=== PATIENT | male | born 2000 | race Caucasian/White ===

== ENCOUNTER 2024-01-04 08:12 | Day surgery (SDC) | payer BC ==
[2024-01-04] MEDS ORDERED: Ringers Lactate 1,000 ML IV ONE (08:26)
[2024-01-04] MEDS ORDERED: LIDOCAINE HCL/EPINEPHRINE 20 ML MDV ONE (08:46)
[2024-01-04] MEDS ORDERED: LIDOCAINE 1% MPF 5 ML VIAL ONE (09:31)
[2024-01-04] MEDS ORDERED: FENTANYL CITR 100 MCG/2 ML ONE ×2 (09:32→11:37)
[2024-01-04] MEDS ORDERED: MIDAZOLAM HCL 2 MG/2 ML INJ ONE (09:32)
[2024-01-04] MEDS ORDERED: propofoL 200 MG/20 ML VIAL IV ONE (09:32)
[2024-01-04] MEDS ORDERED: ONDANSETRON 4 MG/2 ML VIAL ONE (09:33)
[2024-01-04] MEDS ORDERED: dexAMETHasone 4 MG/ML VIAL ONE (09:33)
[2024-01-04] MEDS ORDERED: ROCURONIUM 50 MG/5 ML VIAL IV ONE (09:33)
[2024-01-04] MEDS ORDERED: KETOROLAC 30 MG/ML INJ ONE (09:33)
[2024-01-04] MEDS ORDERED: EPINEPHRINE 1 MG/ML VIAL ONE ×2 (10:30→10:48)
[2024-01-04] MEDS: EPINEPHRINE 1 MG/ML VIAL SQ ONE ×2 (10:32)
[2024-01-04] MEDS ORDERED: HYDROCODONE/APAP 7.5/325 MG TAB ONE (12:06)
[2024-01-04] MEDS: HYDROCODONE/APAP 7.5/325 MG TAB PO ONE (12:10)
[2024-01-04 12:21] VITALS: BP 131/68; TEMP 97; O2SAT 100
--- NOTE | 2024-01-04 12:23 | P.OP ---
Date of Service: 01/04/24 Preoperative diagnosis: Chronic tonsillitis, Tonsillolithiasis Postoperative diagnosis: Same Procedure: Tonsillectomy Surgeon: Cha Ureña MD Scheduling Administrator: None Anesthesia: General via endotracheal tube IV fluids: crystalloid, see anesthesia record Estimated blood loss: Minimal, less than 5 mL Specimen: Bilateral tonsils Findings: Chronic tonsillitis and tonsil stones. Suture tie placed at the base of the right tonsil at the time of removal for ligation of tissue. Moderate to significant bleeding on the superior pole treated with epinephrine soaked sponge and packing with pressure held for 10 minutes. On subsequent evaluation there was bleeding near the anterior pillar within the fossa which was clamped and t ied as well. The left side did not have any significant degree of bleeding but did appear chronically inflamed. Near the base of the tonsil, small amount of tonsil tissue was left in situ to avoid entry into lingual vessels and to avoid entry into the base of tongue Implants: None Indication: patient with persistent symptoms and findings in spite of good medical management. Details of operation: The patient was brought to the operating room and placed under general anesthesia via oral endotracheal tube. The head of bed was turned 90 degrees. A shoulder roll was placed and the neck was extended. A head drape was applied. The McIvor mouthgag was placed and suspended from the Harper stand. The oxygen concentration was confirmed with the anesthesiologist and was less than 40%. W eight-based dexamethasone was administered by the anesthesiologist. The soft palate was palpated and there was no submucous cleft. A red rubber catheter was placed in the nose and the tip withdrawn through the mouth and secured to the head drape for retraction of the soft palate. The tonsils were noted to be moderate sized with chronic inflammation and tonsil stones. The left tonsil was grasped with a straight Allis clamp. The Bovie electrocautery was used to incise the mucosa over the anterior pillar and identified the tonsillar capsule. The tonsil was dissected using cautery and blunt dissection until free from soft tissue attachments. A tonsil ball was placed to aid in hemostasis. The right tonsil was removed in a similar manner. During removal of the right tonsil, near the base of the tonsil there was bleeding and decision was made to use a 4-0 Endoloop suture to ligate the tonsil from the base of tongue. Following this, there was moderate to significant bleeding near the anterior pillar and an epinephrine soaked tonsil sponge was applied with direct pressure for 10 minutes. After removal the bleeding continued. The Inga retractor was used to elevate the anterior pillar revealing bleeding more anteriorly which was cauterized. With this additional bleeding was noted in the anterior pillar the tissue was grasped with a tonsil clamp and ligated with an additional 4-0 Endoloop suture. Once the suture was applied there was oozing in the mid to lower anterior tonsillar fossa and an additional epinephrine soaked gauze was placed over this area and held in situ for an additional 5 minutes. After removal, the area appeared hemostatic The tonsillar fossa's were injected with 0.5% Marcaine with epinephrine; a total of 1-2 milliliters was used. The oropharynx was irrigated with cold saline. After suctioning, a Harford sump orogastric tube was passed for decompression of the stomach. The red rubber catheter was removed and used to suction the oropharynx, nasopharynx, and nasal cavities. The McIvor mouthgag was removed. There was no evidence of injury to the teeth, lips, or tongue. The mandible was mobile. The patient was then awakened from anesthesia and extubated in the operating room, taken to the recovery room in stable condition. Disposition: The patient will be discharged home later today in the care of their family with written postoperative instructions and appropriate pain medications. They will follow-up in Dr. Ureña's office in approximately 1 month. They are instructed to contact Dr. Ureña's office for any bleeding or other concerns.
== END 2024-01-04 12:44 | disposition home or self-care (01) ==
LOC: OR 08:12
PROVIDERS: ATTEND Otolaryngology
PROC: 0CTPXZZ Resection of Tonsils, External Approach (ICD-10-PCS; principal; 2024-01-04 10:15)
DX: J35.01 Chronic tonsillitis (principal); J35.8 Other chronic diseases of tonsils and adenoids
CPT/HCPCS: 88304; 42826; J2704; J1100; J2001; J2250; J3010 ×2; J0171 ×3; J2405; J7120

== ENCOUNTER 2024-01-10 05:08 | Emergency (ER) | payer BC ==
[2024-01-10 06:09] LABS: Absolute Eosinophils 0.2 K/uL (0-0.5); Absolute Monocytes 0.5 K/uL (0.1-1.3); Absolute Neutrophil 2.6 K/uL (1.8-8.0); Basophils % 0.3 % (0-1.3); Eosinophils % 3.1 % (0-4.4); Hematocrit 45.2 % (39.6-49.0); Hemoglobin 15.2 g/dL (13.6-17.9); Lymphocytes % 37.9 % (15.3-44.8); MCH 30.4 pg (27.0-35.0); MCHC 33.6 g/dL (32.0-36.0); MCV 90.5 fL (80-100); MPV 8.3 fL (7.6-11.3); Monocytes % 10.2 % (3.3-12.3); Neutrophils % 48.5 % (41.7-73.7); Platelets 148 thou/uL (152-406); RBC Red Blood Cell Count 4.99 M/uL (4.33-5.43); Red Cell Distribution Width 12.9 % (12.1-15.2)
[2024-01-10] MEDS ORDERED: TRANEXAMIC ACID 1,000 MG/10 ML VIAL IV ONE (06:09)
[2024-01-10] MEDS ORDERED: NA CHLORIDE 0.9% 100 ML ONE (06:09)
[2024-01-10] MEDS ORDERED: NA CHLORIDE 0.9% 1,000 ML ONE (06:09)
[2024-01-10 06:14] LABS: PT Prothrombin Time 12.6 SECONDS (9.4-12.5); Protime INR 1.13
--- NOTE | 2024-01-10 06:51 | P.CNS ---
Date of Consult: 01/10/24 Chief complaint: Hemoptysis HPI: 23-year-old white male postop day 6 tonsillectomy called on-call ENT with concerns of coughing up blood around 4:30 AM. His significant other reported he coughed up a small amount of blood and then about 15 minutes later had another episode of small-volume hemoptysis. Due to his condition he was recommended to present to the emergency room for examination. The patient notes that his pain over the last week was worse over the weekend but generally has been well- controlled with the hydrocodone/acetaminophen and he has 1 or 2 tablets remaining at home. Reports that he has been taking in adequate oral fluids with urination of light yellow urine throughout the day. Photodocumentation reviewed in the emergency room of the blood from home demonstrates clear saliva with a generous streak of blood but no large clot or gross hemoptysis. Past medical history as documented in his H&P from January 03 with addition of tonsillectomy performed by Dr. Ureña on that date Home medications: Hydrocodone/acetaminophen for postoperative pain. Allergies: No known drug allergies Review of systems: Patient denies fever, headache, easy bruising, shortness of breath, chest pain, nausea or vomiting. All other review of systems is negative Physical exam: patient is in no acute distress. He is resting quietly and is awake alert and oriented. He is currently receiving IV fluids and TXA through his IV. His oral cavity appears moist. His oropharynx demonstrates bilateral eschar of the tonsillar fossa with a 2 to 3 mm area of flat clot at the base of the right tonsillar fossa with no active bleeding. Assessment: secondary post tonsillectomy hemorrhage Plan: Complete current 1 L IV fluid saline bolus with tranexamic acid. We discussed options given the lack of active bleeding on exam including brief observation in the operating room with discharge following completion of medical therapy. Alternatively we discussed the option of observation during the day today for at least the next several hours in order to monitor for any additional bleeding. The patient and his significant other will discuss the options. If the patient elects for observation, the ER is requested to contact Dr. Ureña for placement of orders. We discussed further outpatient pain management with option for a refill of his hydrocodone versus transition to OTC acetaminophen only. He does not request a refill of medications at this time. Due to his acute bleeding I would avoid aspirin and ibuprofen for the next several days.
[2024-01-10 06:53] LABS: ALT/SGPT 19 U/L (16-61); Albumin 4.1 g/dL (3.4-5.0); Albumin/Globulin Ratio 1.2 (1.1-1.8); Alkaline Phosphatase 55 U/L (45-117); Anion Gap 8.5 mEq/L (5.0-15.0); BUN Blood Urea Nitrogen 9 mg/dL (7-18); Bicarbonate 29 mEq/L (21-32); Bilirubin Total 0.7 mg/dL (0.2-1.0); Globulin 3.5 g/dL (2.3-3.5); Glomerular Filtration Rate 128 ml/min (=/>90); Glucose Level 100 mg/dL (74-106); Protein, Total 7.6 g/dL (6.4-8.2); Sodium Level 136 mEq/L (136-145)
[2024-01-10 06:55] LABS: Potassium 3.5 mEq/L (3.5-5.1)
[2024-01-10 06:56] LABS: AST/SGOT 13 U/L (15-37); Bilirubin Direct < 0.2 mg/dL (0-0.2); Bilirubin Indirect, Calculated 0.5 mg/dL (0.2-0.8)
--- NOTE | 2024-01-10 08:12 | EDPHYS ---
Physician Documentation [facility] Name: Manan Tripp Age: 23 yrs Sex: Male : 2000 Arrival Date: 01/10/2024 Time: 05:08 Bed 12 Private MD: ED Physician Joni Hernandez HPI: 01/09 05:26 This 23 yrs old Male presents to ER via Unassigned with complaints of Post sp4 Surgical Bleeding, Tonsillectomy on 01/04/24. 06:43 23-year-old male history of tonsillectomy 6 days ago 01/04/2024 presents with mild sp4 postoperative bleeding from site of the right tonsil. Patient is feeling okay at this time. Dr. Ureña with ENT called ahead of time and recommended IV fluids and tranexamic acid.. Historical: - Allergies: 05:31 No Known Allergies; kl - Home Meds: 05:31 hydrocodone-acetaminophen 7.5-325 mg Oral tablet [Active]; kl - PMHx: 05:31 None; kl - PSHx: 05:31 Tonsillectomy; kl - Immunization history:: Adult Immunizations not up to date. - Infectious Disease History:: Denies. - Social history:: Smoking status: Patient denies any tobacco usage or history of. - Family history:: not pertinent. ROS: 06:43 Constitutional: Negative for fever, chills, and weight loss, positive postoperative sp4 bleeding from the throat 06:43 All other systems are negative, Exam: 06:43 Constitutional: This is a well developed, well nourished patient who is awake, alert, sp4 and in no acute distress. Head/Face: Normocephalic, atraumatic. Eyes: Pupils equal round and reactive to light, extra-ocular motions intact. Lids and lashes normal. Conjunctiva and sclera are not injected. Cornea within normal limits. Periorbital areas with no swelling, redness, or edema. ENT: Nares patent. No nasal discharge, no septal abnormalities noted. Tympanic membranes are normal and external auditory canals are clear. Oropharynx with no swelling, or masses, or evidence of obstruction, uvula midline. Mucous membranes moist. Postoperative changes in the throat with granulation tissue around tonsillectomy site no sign of active bleeding. Neck: Trachea midline, no thyromegaly or masses palpated, and no cervical lymphadenopathy. Supple, full range of motion without nuchal rigidity, or vertebral point tenderness. Chest/axilla: Normal chest wall appearance and motion. Nontender with no deformity. No lesions are appreciated. Cardiovascular: Regular rate and rhythm with a normal S1 and S2. No gallops, murmurs, or rubs. Normal PMI, no JVD. No pulse deficits. Respiratory: Lungs have equal breath sounds bilaterally, clear to auscultation and percussion. No rales, rhonchi or wheezes noted. No increased work of breathing, no retractions or nasal flaring. Abdomen/GI: Soft, with normal bowel sounds. No distension or tympany. No guarding or rebound. No evidence of tenderness throughout. Back: No spinal tenderness. No costovertebral tenderness. Skin: Warm, dry with normal turgor. Normal color with no rashes, no lesions, and no evidence of cellulitis. MS/ Extremity: Pulses equal, no cyanosis. Neurovascular intact. Full, normal range of motion. Neuro: Awake and alert, GCS 15, oriented to person, place, time, and situation. Cranial nerves II-XII grossly intact. Motor strength 5/5 in all extremities. Sensory grossly intact. Psych: Awake, alert, with orientation to person, place and time. Behavior, mood, and affect are within normal limits Vital Signs: 05:29 BP 131 / 84; Pulse 72; Resp 18; Temp 97.8(O); Pulse Ox 99% ; Weight 73.48 kg (R); kl Height 5 ft. 8 in. ; Pain 4/10; 08:19 BP 128 / 64; Pulse 64; Resp 16; Pulse Ox 98% on R/A; Pain 0/10; iw 05:29 Body Mass Index 24.63 (73.48 kg, 172.72 cm) kl 05:29 Pain Scale: Adult kl 08:19 Pain Scale: Adult iw [employer] Coma Score: 06:43 Eye Response: spontaneous(4). Motor Response: obeys commands(6). Verbal Response: sp4 oriented(5). Total: 15. MDM: 05:44 Patient medically screened. sp4 20:30 Differential diagnosis: nasal fracture, trauma, sinusitis, epistaxis r/t trauma, sp4 spontaneous epistaxis. Data reviewed: vital signs, nurses notes. 20:31 ED course: Patient was evaluated by Dr. Ureña in the ER. No further bleeding in the sp4 ER. Tranexamic acid was given IV. Patient stable for discharge home.. 01/09 05:38 Order name: Basic Metabolic Panel; Complete Time: 20:31 sp4 01/09 05:38 Order name: CBC with Diff; Complete Time: 06:42 sp4 01/09 05:38 Order name: LFT's; Complete Time: 20:31 sp4 01/09 05:38 Order name: PT-INR; Complete Time: 06:42 sp4 01/09 05:38 Order name: IV Saline Lock; Complete Time: 06:30 sp4 01/09 05:38 Order name: Labs collected and sent; Complete Time: 06:30 sp4 Administered Medications: 06:30 Drug: tranexamic acid 1000 mg IV at calculated rate once; administer at a rate not to jb4 exceed 100 mg per min {Note: administered in 100ml NS.} Route: IV; Rate: calculated rate; Site: right antecubital; 07:00 Follow up: IV Status: Completed infusion iw 06:30 Drug: NS 0.9% IV 1000 ml IV at 1 bolus Per protocol; 1000 mL bolus Route: IV; Rate: 1 jb4 bolus; Site: right antecubital; 07:30 Follow up: IV Status: Completed infusion iw Disposition Summary: 01/10/24 08:11 Discharge Ordered Notes: Location: Home sp4 Problem: new sp4 Symptoms: have improved sp4 Condition: Stable sp4 Diagnosis - Post operative bleeding, After Tonsillectomy Bleeding sp4 Followup: sp4 - With: Cha Ureña MD - When: 7 - 10 days - Reason: Recheck today's complaints Discharge Instructions: - Discharge Summary Sheet sp4 - Medical Screening Exam sp4 Forms: - Patient Portal Instructions sp4 Signatures: Dispatcher [employer] Toña Dodson RN RN kl Bryson, James, RN RN jb4 Potepalov, Sergey, MD MD sp4 Williams, Irene RN iw Corrections: (The following items were deleted from the chart) 05:38 05:38 BASIC METABOLIC PANEL+C.LAB.BRZ ordered. EDMS EDMS 05:38 05:38 CBC+H.LAB.BRZ ordered. EDMS EDMS 05:38 05:38 HEPATIC FUNCTION+C.LAB.BRZ ordered. EDMS EDMS 05:38 05:38 PROTIME (+INR)+COAG.LAB.BRZ ordered. EDMS EDMS
--- NOTE | 2024-01-10 08:12 | ER ---
Nurse's Notes [facility] Name: Manan Tripp Age: 23 yrs Sex: Male : 2000 Arrival Date: 01/10/2024 Time: 05:08 Bed 12 Private MD: Diagnosis: Post operative bleeding, After Tonsillectomy Bleeding Presentation: 01/09 05:29 Chief complaint: Patient states: tonsillectomy done on Sunday reports bleeding from kl area x 2 hours. Coronavirus screen: Vaccine status: Patient reports being unvaccinated. Ebola Screen: Patient negative for fever greater than or equal to 101.5 degrees Fahrenheit, and additional compatible Ebola Virus Disease symptoms. Initial Sepsis Screen: Does the patient meet any 2 criteria? No. Patient's initial sepsis screen is negative. Does the patient have a suspected source of infection? No. Patient's initial sepsis screen is negative. Risk Assessment: Do you want to hurt yourself or someone else? Patient reports no desire to harm self or others. Onset of symptoms was January 10, 2024 at 03:30. 05:29 Method Of Arrival: Ambulatory 05:29 Acuity: KAYY 4 Triage Assessment: 05:32 General: Appears in no apparent distress. Behavior is calm, cooperative. Pain: Complains of pain in throat Pain currently is 4 out of 10 on a pain scale. EENT: Throat small amount of blood noted. Historical: - Allergies: 05:31 No Known Allergies; kl - Home Meds: 05:31 hydrocodone-acetaminophen 7.5-325 mg Oral tablet [Active]; - PMHx: 05:31 None; - PSHx: 05:31 Tonsillectomy; - Immunization history:: Adult Immunizations not up to date. - Infectious Disease History:: Denies. - Social history:: Smoking status: Patient denies any tobacco usage or history of. - Family history:: not pertinent. Screenin:20 [facility] ED Fall Risk Assessment (Adult) History of falling in the last 3 months, iw including since admission No falls in past 3 months (0 pts) Confusion or Disorientation No (0 pts) Intoxicated or Sedated No (0 pts) Impaired Gait No (0 pts) Mobility Assist Device Used No (0 pt) Altered Elimination No (0 pt) Score/Fall Risk Level 0 - 2 = Low Risk. Abuse screen: Denies threats or abuse. Nutritional screening: No deficits noted. Tuberculosis screening: No symptoms or risk factors identified. Assessment: 07:54 Reassessment: Patient appears in no apparent distress at this time. Patient and/or iw family updated on plan of care and expected duration. Pain level reassessed. Patient is alert, oriented x 3, equal unlabored respirations, skin warm/dry/pink. no bleeding noted Patient states symptoms have improved. Vital Signs: 05:29 BP 131 / 84; Pulse 72; Resp 18; Temp 97.8(O); Pulse Ox 99% ; Weight 73.48 kg (R); kl Height 5 ft. 8 in. ; Pain 4/10; 08:19 BP 128 / 64; Pulse 64; Resp 16; Pulse Ox 98% on R/A; Pain 0/10; iw 05:29 Body Mass Index 24.63 (73.48 kg, 172.72 cm) kl 05:29 Pain Scale: Adult kl 08:19 Pain Scale: Adult iw [place] Coma Score: 06:43 Eye Response: spontaneous(4). Motor Response: obeys commands(6). Verbal Response: sp4 oriented(5). Total: 15. ED Course: 05:10 Patient arrived in ED. [id number] 05:26 Joni Hernandez MD is Attending Physician. sp4 05:31 Triage completed. kl 07:00 Arm band placed on. iw 07:09 Minoo Villanueva, RN is Primary Nurse. iw 07:54 Patient has correct armband on for positive identification. iw 07:54 No provider procedures requiring assistance completed. iw 08:08 Cha Ureña MD is Referral Physician. sp4 08:20 Provided Education on: d/c instructions . iw 08:20 IV discontinued, intact, bleeding controlled, No redness/swelling at site. Pressure iw dressing applied. Administered Medications: 06:30 Drug: tranexamic acid 1000 mg IV at calculated rate once; administer at a rate not to jb4 exceed 100 mg per min {Note: administered in 100ml NS.} Route: IV; Rate: calculated rate; Site: right antecubital; 07:00 Follow up: IV Status: Completed infusion iw 06:30 Drug: NS 0.9% IV 1000 ml IV at 1 bolus Per protocol; 1000 mL bolus Route: IV; Rate: 1 jb4 bolus; Site: right antecubital; 07:30 Follow up: IV Status: Completed infusion iw Medication: 08:20 VIS not applicable for this client. iw Outcome: 08:11 Discharge ordered by MD. brower 08:20 Discharged to home ambulatory, with family, iw 08:20 Condition: good 08:20 Discharge instructions given to patient, family, Instructed on discharge instructions, follow up and referral plans. Demonstrated understanding of instructions, follow-up care, 08:21 Patient left the ED. iw Signatures: Toña Gomez RN iMnoo Kolb RN RN iw Bryson, James, RN RN jb4 Clarissa Nelson Sergey, MD MD sp4
[2024-01-10 08:25] VITALS: TEMP 97.8
[2024-01-10 08:26] VITALS: BP 128/64; O2SAT 98
== END 2024-01-10 08:21 | disposition home or self-care (01) ==
LOC: ER 05:08
DX: K91.840 Postprocedural hemorrhage of a digestive system organ or structure following a digestive system procedure (principal); Y83.6 Removal of other organ (partial) (total) as the cause of abnormal reaction of the patient, or of later complication, without mention of misadventure at the time of the procedure
CPT/HCPCS: 96365; 85025; 80048; 36415; 85610; 80076; 99284; J7030